=== PATIENT | male | born 1985 | race Hispanic/Latino ===

== ENCOUNTER 2023-11-18 20:59 | Inpatient (IN) | payer OTHER, SELFPAY ==
[2023-11-18] VITALS (8 sets, daily range): BP systolic 117–137; BP diastolic 68–87; BMI 25.3
[2023-11-18] MEDS: MAGNESIUM SULFATE 50 IV (18:00)
--- NOTE | 2023-11-18 18:00 | EDRN ---
this RN noticed that the pt was 91% on RA, this RN notified Dr. Kay and placed the pt on 2L NC, the pt is 92% on 2L NC, the pt is tachypnic, anxious, and diaphoretic, this RN notified provider and provider wants EKG performed after breathing
treatment, the pt is stating to this RN, 'I feel like I can't breathe', the pt mother is currently at the pts bedside, tenisha alexandra in 100-110's, will continue to monitor the pt closely
[2023-11-18] MEDS: TYLENOL 1000 MG PO (18:01)
--- NOTE | 2023-11-18 18:01 | ED.GENMED ---
History of Present Illness
General
Chief Complaint: Breathing Problem
Source: patient
Exam Limitations: none
Time Seen by Provider: 11/18/23 17:48
Nursing documentation reviewed up to this point in time: agreed with
Travel History
Have you had any contact with someone who has COVID-19?: No
Do you have any symptoms of coronavirus? Fever > 100 degrees, chills, cough, shortness of breath, sore throat, loss of taste or smell, muscle aches, or headache?: Yes
Symptoms:: see triage
History of Present Illness
History of Present Illness:
38-year-old male recently quit smoking asthmatic infant son with RSV presents with cough congestion fever vomiting here is tachypneic tachycardic wheezing hypoxic
Ran out of his inhaler
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
Past History
Past History
ED Past Medical History: Asthma
ED Past Surgical History: None
Social History
Tobacco: Former smoker
Alcohol: Occasional
Drug: None
Living: with family
Employment: Employed
Family History
Family History: Diabetes
Review of Systems
Review of Systems
All Other Systems: Not applicable
Constitutional: Reports fever and fatigue
Respiratory: Reports cough and trouble breathing
Cardiac: Reports no symptoms
ABD/GI: Reports nausea and vomiting
: Reports no symptoms
Musculoskeletal: Reports no symptoms
Skin: Reports no symptoms
Neurological: Reports no symptoms
Phy Exam
Physical Exam
Physical Exam:
Physical Exam
General: Appearing male tachypneic grunting febrile
Neck: No jaundice
Heart: Tachycardic
Lungs: Wheezing with rhonchi bilateral
Abdomen: Nontender
Neuro: alert and oriented. no focal neurological deficits
Skin: no rash
Psychiatric: well kept. interactive and cooperative
Extremities: no edema. no calf tenderness.
Course
Orders/Labs/Results
Orders:
Orders
11/18/23 17:54
0.9% Sodium Chloride 1000 ml [Nss] 1,000 ml IV BOLUS
Acetaminophen [Tylenol] 1,000 mg PO NOW STA
Albuterol Sulfate [Ventolin Nebules] 7.5 mg INH R NOW STA
Dexamethasone Sod Phosphate [Decadron] 20 mg IV NOW STA
Magnesium Sulfate 2 Gram/50 ml [Magnesium Sulfate] 2 gram in 50 ml IV NOW
11/18/23 17:55
COVID-19 Antigen Urgent
Source: Nasal Swab
Complete Blood Count/With Diff Urgent
Comprehensive Metabolic Panel Urgent
Lactic Acid Urgent
Blood Culture Urgent
CLIFF Source: Blood/Venous
Specimen Description:
Influenza A+B Rapid Molecular Urgent
CLIFF Source: Nasal Swab
Specimen Description:
CR Chest Portable - 1 View Urgent
Comment:
Reason For Exam: sob
Reason Study Needs to be Portable: Unable to Transport
11/18/23 18:31
ABG [Arterial Blood Gas] Stat
%Oxygen/Room Air: 2
11/18/23 18:42
Respiratory Syncytial Virus Urgent
CLIFF Source: Nasal Swab
Specimen Description:
Date Specimen was Collected: 11/18/23
Time Specimen was Collected: 18:33
11/18/23 19:53
Admit/Transfer Patient As Directed
Co-Sign Provider:
Level of Care: Inpatient admission
Assign to:: Medical/Surgical
Physician / Group: Cricket
Diagnosis: AE-Asthma, Acute Hypoxemic Respiratory Insufficiency
Reason for Hospitalization: AE-Asthma, Acute Hypoxemic Respiratory Insufficiency
Expected length of stay greater than two midnights?: Yes
ELOS- Estimated Length of Stay in days: 2
I certify the patient meets the requirements for IP care: Yes
11/18/23 19:54
Code Status As Directed
Resuscitation Status: Full Code
11/18/23 22:23
0.9% Sodium Chloride 1000 ml [Nss] 1,000 ml IV 100 mls/hr
Acetaminophen [Tylenol] 650 mg PO Q4HPRN PRN
Albuterol Nebs [Ventolin Nebules] 2.5 mg INH R Q4HPRN PRN
Doxycycline [Vibramycin] 100 mg PO Q12
Ondansetron Injectable [Zofran] 4 mg IV Q6HPRN PRN
11/18/23 22:23
Activity As Directed
Activity Level: Ambulate
I/O [Intake/ Output] As Directed
Frequency: Per unit guidelines
Vital Signs As Directed
Frequency: Per unit guidelines
Oxygen Therapy [O2 Therapy] [RESP] Routine
Titrate/Wean O2 to maintain O2 sat greater than (%): 94
DX Deep Vein Thrombosis Video Routine
11/18/23 23:00
Procalcitonin Urgent
PCT Algorithmm Indication: Respiratory
11/19/23 02:00
Dexamethasone Sod Phosphate [Decadron] 4 mg IV Q8H
11/19/23 05:48
Basic Metabolic Panel IN AM
Complete Blood Count/No Diff IN AM
11/19/23 Breakfast
Regular
At Your Request: Full Participation
Does patient need a safe tray?: No
11/19/23 18:00
Enoxaparin Sodium [Lovenox] 40 mg SC QPM
Abnormal Lab Results
11/18/23 11/18/23
17:55 18:31
WBC 19.0 H 10^3/uL
(4.8-10.8)
Abs Immat Gran (auto) 0.1 H 10^3/uL
(0-0.05)
Absolute Neuts (auto) 17.8 H 10^3/uL
(1.4-6.5)
Absolute Lymphs (auto) 0.3 L 10^3/uL
(1.2-3.4)
Absolute Monos (auto) 0.7 H 10^3/uL
(0.1-0.6)
Neutrophils % 93.8 H %
(42.2-75.2)
Lymphocytes % 1.7 L %
(20.5-51.1)
pH 7.48 H
(7.35-7.45)
pCO2 28 L mmHg
(35-48)
pO2 62 L mmHg
(83-108)
HCO3 20.9 L mmol/L
(21-28)
Chloride 108 H mmol/L
(98-107)
BUN 25 H mg/dl
(9-20)
11/18/23 17:55
11/18/23 17:55
Vital Signs
Initial and Last Documented VS:
Initial Vital Signs
Temp Pulse Resp BP Pulse Ox
100.2 F 128 24 128/87 96
11/18/23 17:23 11/18/23 17:23 11/18/23 17:23 11/18/23 17:23 11/18/23 17:23
Last Documented Vital Signs
Temp Pulse Resp BP Pulse Ox
97.8 F 75 16 160/95 98
11/20/23 07:55 11/20/23 15:56 11/20/23 15:56 11/20/23 07:55 11/20/23 07:55
MDM/Problems Addressed
Differential Diagnosis Includes:
Asthma bronchitis pneumonia influenza COVID RSV
MDM/Problems Addressed:
Shortness of breath cough fever
Chronic conditions affecting care: Asthma
Acute Exacerbation and/or Progression of Chronic Illness: Asthma
*Critical Care Note
Total Time (30-74mins, 75-104mins- exclusive of procedures): 31
Patient Management
Social determinants of health affecting care: Living situation and Strong social support
Discussion with other providers: Hospitalist
Escalation/DeEscalation of care consider admission/obs:
Patient hypoxic tachypneic tachycardic low-grade fever asthmatic will require admission
Update Note
Update Note:
6:45 PM patient clinically improved moving more air less tachypneic less tachycardic still requiring oxygen chest x-ray noted for report pending leukocytosis noted viral swabs are noted will likely require admission due to severity of illness
potential for decompensation
ED Attending Note
-
Portions of this chart may have been created with voice recognition software.� Occasional wrong word or��sound alike� substitutions may have occurred due to the inherent limitations of voice recognition software.
Discharge Plan
Departure
Patient Disposition: Admit
Date of Disposition: 11/18/23
Time of Disposition: 19:33
Admit to: Med/Surg
Presentation/result/management discussed w/ accepting MD/DO: Hospitalist
Patient with high blood pressure during this ER visit?: No
Condition: Fair
Covid-19: Negative COVID-19
Discharge Problem:
Asthmatic bronchitis
Interventions
Interventions:
*Risk Screen - Suicide Last Done: 11/18/23 18:00
*General Assessment Last Done: 11/18/23 18:00
*Neglect/Abuse Screening Last Done: 11/18/23 18:00
ED- Fall Risk Assessment Last Done: 11/18/23 18:00
*ED COVID-19 Vaccine History Last Done: 11/18/23 17:23
*Nursing Disposition Last Done: 11/18/23 23:49
ED- Cardiac Assessment Last Done: 11/18/23 23:57
ED- Pulmonary Assessment Last Done: 11/18/23 23:57
Discharge Date and Time
Discharge Date/Time: 11/20/23 15:57
[2023-11-18] MEDS: NSS 1000 IV ×2 (18:02→22:54)
[2023-11-18] MEDS: DECADRON 20 MG IV (18:02)
[2023-11-18] MEDS: VENTOLIN NEBULES 7.5 MG INH (18:02)
[2023-11-18 18:03] LABS: % Basophils 0.2 % (0-2); % Eosinophils 0.1 % (0-6); % Immature Granulocytes 0.5 % (0-0.5); % Lymphocytes 1.7 % (20.5-51.1); % Monocytes 3.7 % (1.7-9.3); % Neutrophils 93.8 % (42.2-75.2); Absolute Immature Granulocytes 0.1 10^3/uL (0-0.05); Absolute Lymphocytes 0.3 10^3/uL (1.2-3.4); Absolute Monocytes 0.7 10^3/uL (0.1-0.6); Absolute Neutrophils 17.8 10^3/uL (1.4-6.5); Hematocrit 44.8 % (39.0-52.0); Mean Corp Hgb Conc. 33.5 g/dL (33.0-37.0); Mean Corpuscular Hgb 27.8 pg (27.0-31.0); Nucleated Red Blood Cells % 0 % (-); Platelet Count 284 10^3/uL (130-400); Red Cell Dist. Width 12.9 % (11.5-14.5)
[2023-11-18 18:20] LABS: ALT (SGPT) 21 U/L (0-50); AST (SGOT) 23 U/L (17-59); Albumin 4.6 g/dl (3.5-5.0); Alkaline Phosphatase 111 U/L (38-126); Blood Urea Nitrogen 25 mg/dl (9-20); Calcium 9.2 mg/dl (8.4-10.2); Carbon Dioxide 22 mmol/L (22-30); Chloride 108 mmol/L (98-107); Estimated Creatinine Clearance 78 ml/min; Glucose 92 mg/dl (70-99); Lactic Acid 1.3 mmol/L (0.7-2.0); Potassium 3.6 mmol/L (3.5-5.1); Sodium 138 mmol/L (135-145); Total Bilirubin 1.2 mg/dl (0.2-1.3); Total Protein 7.6 g/dl (6.3-8.2); eGFR > 60.00
[2023-11-18 18:24] LABS: COVID-19 Antigen Negative (Negative)
[2023-11-18 18:52] LABS: B.E. -1.3 mmol/L; HCO3 20.9 mmol/L (21-28); O2 Saturation % 94.5 % (94-98); PCO2 28 mmHg (35-48); PO2 62 mmHg (83-108); pH 7.48 (7.35-7.45)
--- NOTE | 2023-11-18 19:57 | HPS.HSE ---
Family Physician
-
Family Physician: * NONE
Chief Complaint
-
Cough / SOB
History of Present Illness
Patient is a 38y M with PMH significant for asthma who presents to ED complaining of cough and SOB. Patient states that his symptoms started yesterday with hacking, non-productive cough / fever and sweating. He began to feel increasingly SOB
with audible wheezing. Patient states that he has been taking ibuprofen and albuterol MDI at home with no relief in his symptoms.
He is not certain of any specific sick contacts.
In the ED, patient was treated with nebs and IV steroids and is currently significantly improved from arrival.
Medical History
Past Medical History
Past Medical History: Reports Other
Additional Past Medical History:
Asthma
Past Surgical History: Reports None
Social History
Tobacco: Former Smoker (Quit 2 months ago. )
Alcohol: None
Drug: None
Family History
Family History: Other (Father: DM, HTN Family History of Dementia)
Allergies / Home Medications
Allergies reflects when Allergies were last updated in [employer]
Home Medications with original date entered in [employer]
Allergy/Medication List:
Allergies
Allergy/AdvReac Type Severity Reaction Status Date / Time
No Known Allergies Allergy Verified 11/18/23 17:26
Home Medications
albuterol sulfate 90 mcg/actuation aerosol inhaler (Proventil HFA) 2 puff inhalation R Q4HPRN PRN shortness of breath 11/18/23
Review of Systems
-
History Source: Patient
A 12 point ROS was completed and negative except as noted: Yes
Constitutional: Reports Fever, Fatigue and Chills
EENT: Denies Sore Throat
Respiratory: Reports Cough and Trouble Breathing
Cardiac: Denies Chest Pain or Palpitations
Abdomen/GI: Denies Abdominal Pain, Nausea, Vomiting or Diarrhea
: Denies Dysuria or Frequency
Neurological: Denies Dizzy or Headache
Psych: Denies Depression or Anxiety
Physical Exam
Vital Signs
Vital Signs
Temp Pulse Resp BP Pulse Ox
100.5 F H 105 19 134/81 95
11/18/23 19:12 11/18/23 19:00 11/18/23 19:00 11/18/23 19:00 11/18/23 19:00
Physical Exam
General: Other (38y M in no acute distress.)
HEENT: Moist mucous membranes and PERRLA
Respiratory: Other (Faint expiratory wheezing throughout. Otherwise clear. No rhonchi.)
Cardiac: S1/S2 and Regular Rhythm; No Murmur
GI: Soft, Non Tender, Non Distended and Normal Bowel Sounds
Musculoskeletal: No Clubbing, No Cyanosis and No Edema
Neuro: AO x 3
Laboratory Results
-
11/18/23 17:55
11/18/23 17:55
Laboratory Results
pH 7.48 (7.35-7.45) H 11/18/23 18:31
pCO2 28 mmHg (35-48) L 11/18/23 18:31
pO2 62 mmHg (83-108) L 11/18/23 18:31
HCO3 20.9 mmol/L (21-28) L 11/18/23 18:31
Lactic Acid 1.3 mmol/L (0.7-2.0) 11/18/23 17:55
Total Bilirubin 1.2 mg/dl (0.2-1.3) 11/18/23 17:55
AST 23 U/L (17-59) 11/18/23 17:55
ALT 21 U/L (0-50) 11/18/23 17:55
Alkaline Phosphatase 111 U/L (38-126) 11/18/23 17:55
Impression/Plan
-
A/P: Patient is a 38y M with PMH significant for asthma who presents to ED complaining of cough and SOB.
Asthma with Acute Exacerbation
- Admit for further evaluation and treatment.
- Significantly improved from initial presentation.
- Continue IV steroids, nebs, etc.
- Follow for further clinical improvement.
Bronchitis
Leukocytosis
- COVID, influenza and RSV negative in the ED today.
- Check procalcitonin.
- Will start PO doxycycline for now.
- Patient was not on any PO steroids or other treatment prior to admission.
- Low threshold to discontinue abx if procal normal or patient quickly improves.
DVT Prophylaxis: Lovenox
Code Status: Full
[2023-11-18] MEDS: VIBRAMYCIN 100 MG PO (22:54)
[2023-11-19] MEDS: STERILE WATER FOR INJECTION 10 ML IV (02:00)
[2023-11-19] MEDS: DECADRON 4 MG IV ×3 (02:07→17:04)
[2023-11-19] MEDS: ROCEPHIN 1000 MG IV (02:08)
[2023-11-19 05:48] VITALS: BP 139/91
[2023-11-19 06:01] LABS: Hematocrit 41.1 % (39.0-52.0); Hemoglobin 13.7 g/dL (13.0-18.0); Mean Corp Hgb Conc. 33.3 g/dL (33.0-37.0); Mean Corpuscular Volume 80.9 fL (80.0-94.0); Mean Platelet Volume 9.9 fL (7.4-10.4); Platelet Count 272 10^3/uL (130-400); Red Blood Cell Count 5.08 10^6/uL (4.70-6.10); Red Cell Dist. Width 13.2 % (11.5-14.5); White Blood Cell Count 25.3 10^3/uL (4.8-10.8)
[2023-11-19 06:21] LABS: Blood Urea Nitrogen 24 mg/dl (9-20); Calcium 8.9 mg/dl (8.4-10.2); Carbon Dioxide 19 mmol/L (22-30); Chloride 111 mmol/L (98-107); Estimated Creatinine Clearance 123 ml/min; Glucose 160 mg/dl (70-99); Potassium 3.9 mmol/L (3.5-5.1); Sodium 139 mmol/L (135-145); eGFR > 60.00
[2023-11-19 07:30] VITALS: BP 152/93
--- NOTE | 2023-11-19 07:42 | W.PN.HOSP.TC ---
Addendum entered and electronically signed by Keira Godoy MD 11/20/23 15:59:
correction cont IV ceftriaxone.
Empiric doxycycline received on admission not continued.
Original Note:
Today's Communication/Plan
-
duoneb
albuterol prn
doxycycline
steroid taper
monitor respiratory status
Assessment / Plan
Assessment / Plan
Physical Exam
General: no acute distress appears comfortable at this time
HEENT: Moist mucous membranes and PERRLA
Respiratory: mild wheeze
Cardiac: S1/S2 and Regular Rhythm; No Murmur
GI: Soft, Non Tender, Non Distended and Normal Bowel Sounds
Musculoskeletal: No Clubbing, No Cyanosis and No Edema
Neuro: AO x 3
A/P:� Patient is a 38y M with PMH significant for asthma who presents to ED complaining of cough and SOB.
Asthma with Acute Exacerbation.
�-Scheduled Duonebs, Albuterol prn sob wheezing.
�-Steroid taper
-incentive spirometer
Bronchitis
Leukocytosis
Pneumonia
�- COVID, influenza and RSV negative.
�- procal elevated
�- cont PO doxycycline
DVT Prophylaxis:� Lovenox
Code Status:� Full
I spent a total of 50 minutes with the patient or on the floor. More than 50% of this time involved counseling and coordination of care.
Anticipated Discharge: 24 - 48 hours
Subjective/Interval History
-
Date of Service: November 19, 2023
No acute distress. Reports improvement in symptoms. Continues to endorse sob fatigue however. VSS on room air
Objective Data
-
Labs:
Laboratory Results
11/19/23
05:48
WBC 25.3 H
Hgb 13.7
Hct 41.1
Plt Count 272
Sodium 139
Potassium 3.9
Chloride 111 H
Carbon Dioxide 19 L
BUN 24 H
Creatinine 0.7
Glucose 160 H
Calcium 8.9
Vital Signs:
Vital Signs
Temp Pulse Resp BP Pulse Ox
97.8 F 74 20 139/91 97
11/19/23 05:48 11/19/23 05:48 11/19/23 05:48 11/19/23 05:48 11/19/23 05:48
[2023-11-19] MEDS: TYLENOL 650 MG PO ×3 (10:04→21:21)
[2023-11-19] MEDS: NSS 1000 IV ×2 (10:04→18:09)
[2023-11-19] MEDS: DUONEB INH (11:22)
[2023-11-19] MEDS: DUONEB 3 ML INH ×3 (11:22→21:14)
[2023-11-19 11:30] VITALS: BP 137/95
[2023-11-19 16:30] VITALS: BP 147/74
[2023-11-19] MEDS: LOVENOX 40 MG SC (17:04)
[2023-11-19 23:00] VITALS: BP 135/87
[2023-11-20] MEDS: DECADRON 4 MG IV (01:22)
[2023-11-20] MEDS: STERILE WATER FOR INJECTION 10 ML IV (01:22)
[2023-11-20] MEDS: ROCEPHIN 1000 MG IV (01:23)
[2023-11-20] MEDS: NSS 1000 IV (03:51)
[2023-11-20 05:44] LABS: Hematocrit 35.7 % (39.0-52.0); Mean Corp Hgb Conc. 33.6 g/dL (33.0-37.0); Mean Corpuscular Hgb 27.8 pg (27.0-31.0); Mean Corpuscular Volume 82.8 fL (80.0-94.0); Mean Platelet Volume 10.6 fL (7.4-10.4); Platelet Count 255 10^3/uL (130-400); Red Blood Cell Count 4.31 10^6/uL (4.70-6.10); Red Cell Dist. Width 13.7 % (11.5-14.5); White Blood Cell Count 22.5 10^3/uL (4.8-10.8)
[2023-11-20 05:57] LABS: Blood Urea Nitrogen 19 mg/dl (9-20); Calcium 8.3 mg/dl (8.4-10.2); Carbon Dioxide 22 mmol/L (22-30); Chloride 114 mmol/L (98-107); Estimated Creatinine Clearance 123 ml/min; Glucose 154 mg/dl (70-99); Phosphorus 2.8 mg/dl (2.5-4.5); Potassium 4.2 mmol/L (3.5-5.1); Sodium 141 mmol/L (135-145); eGFR > 60.00
--- NOTE | 2023-11-20 07:28 | W.PN.HOSP.TC ---
Addendum entered and electronically signed by Keira Godoy MD 11/23/23 11:21:
Sepsis present on admission resolved
Addendum entered and electronically signed by Keira Godoy MD 11/20/23 15:45:
correction to following documentation. Patient on daily ceftriaxone past two days. Clinically improved. Will discharge on doxycycline for 5 days.
Original Note:
Today's Communication/Plan
-
discharge
Assessment / Plan
Assessment / Plan
Physical Exam
General: no acute distress appears comfortable at this time
HEENT: Moist mucous membranes and PERRLA
Respiratory: clear to auscultation b/l
Cardiac: S1/S2 and Regular Rhythm; No Murmur
GI: Soft, Non Tender, Non Distended and Normal Bowel Sounds
Musculoskeletal: No Clubbing, No Cyanosis and No Edema
Neuro: AO x 3
A/P:� Patient is a 38y M with PMH significant for asthma who presents to ED complaining of cough and SOB.
Asthma with Acute Exacerbation.
�-Scheduled Duonebs, Albuterol prn sob wheezing.
�-Steroid taper
-incentive spirometer
Bronchitis
Leukocytosis
Pneumonia
�- COVID, influenza and RSV negative.
�- procal elevated
-Clinically improved
�- cont PO doxycycline 5 days on discharge
DVT Prophylaxis:� Lovenox
Code Status:� Full
Medically stable for discharge home with outpatient follow up recommendations.
Total Time Preparing Discharge ___45____ minutes including examination of the patient, summary of the hospital stay, instructions for continuing care to all relevant caregivers; and preparation of discharge records, prescriptions, and referral
forms if necessary.
Anticipated Discharge: Today
Subjective/Interval History
-
Date of Service: November 20, 2023
no acute distress resting comfortable in bed. Reports feeling well, ambulating without issues. denies new acute issues. Eager to go home.
Objective Data
-
Labs:
Laboratory Results
11/20/23
05:28
WBC 22.5 H
Hgb 12.0 L
Hct 35.7 L
Plt Count 255
Sodium 141
Potassium 4.2
Chloride 114 H
Carbon Dioxide 22
BUN 19
Creatinine 0.7
Glucose 154 H
Calcium 8.3 L
Vital Signs:
Vital Signs
Temp Pulse Resp BP Pulse Ox
97.8 F 88 18 135/87 98
11/19/23 23:00 11/19/23 23:00 11/19/23 23:00 11/19/23 23:00 11/19/23 23:00
I&O
11/19/23 11/20/23 11/21/23
06:59 06:59 06:59
Intake Total 2690 / 2690
Balance 2690 / 2690
[2023-11-20 07:55] VITALS: BP 160/95
[2023-11-20] MEDS: DUONEB 3 ML INH ×3 (08:28→15:52)
--- NOTE | 2023-11-20 10:45 | CM ---
CM reviewed medication coverage. Patient lives independently with mother. Patient denied history of VN, SNF. Patient has a nebulizer. Patient does not have a PCP at this time. Patient uses [facility] for medication services.
CM provided patient with information on the [facility], [facility] and [facility] coupon.
PLAN: Home no needs.
--- NOTE | 2023-11-20 15:58 | W.DCSUMMARY ---
Discharge Summary
Discharge Data
Date of Admission: 11/18/23
Date of Discharge: 11/20/23
-
Pending Results: No
Hospital Course
38M with PMH significant for asthma who presented to ED complaining of cough and SOB. Asthma with Acute Exacerbation, patient improved with scheduled Duonebs, Albuterol prn sob wheezing, Steroid taper, incentive spirometer. Bronchitis,
Leukocytosis, Pneumonia (COVID, influenza and RSV negative), procal elevated, pt clinically improved on IV ceftriaxone and was transitioned to PO doxycycline 5 days on discharge. Medically stable, patient was discharged home with outpatient follow
up recommendations.
Discharge Plan
-
Patient Disposition: Home (Routine Discharge)
Discharge Diagnosis/Procedures: Pneumonia, Asthma Exacerbation
Condition: Good
Diet: Regular
Activity: As tolerated
Driving Restrictions: As prior to admission
Bathing Restrictions: None
Blood Work: Please repeat CBC and BMP with primary care provider in 1 week of discharge.
Others Tests: Please repeat Chest X-ray with primary care provider in 1 month of discharge.
Activity Restrictions/Additional Instructions:
Please follow up with primary care provider in 1 week of discharge.
5 days Doxycycline has been prescribed for pneumonia.
Doxycycline Precautions
Take with at least 6 oz H2O
Take with food but no calcium containing products like milk or cheese
Ideally you would not take any multivitamins, calcium, magnesium or zinc containing products.
If you must take one of these products make sure that the pills are by at least 3 hours.
Sit up for at least 30 minutes after each dose to prevent heartburn.
Your skin will be more sensitive to the sun while you are on doxycycline - it will be very easy for you to get a sunburn.
A prednisone taper has been prescribed for asthma exacerbation:
40 mg day 1, 30 mg day 2, 20 mg day 3, 10 mg day 4, then stop.
A script has been provided for a nebulizer machine. As needed nebulizer medication has been prescribed to your pharmacy.
Please take medications as prescribed/recommended and follow up with your primary care provider and/or other healthcare provider involved in your care for further adjustments to your medication regimen as necessary.
Instructions: Asthma, Adult (DC), Community-Acquired Pneumonia, Adult (DC)
Referrals:
NONE,* [Family Provider] -
Prescriptions:
New
ipratropium-albuterol 0.5 mg-3 mg(2.5 mg base)/3 mL Solution For Nebulization
3 ml inhalation QIDPRN PRN (Reason: shortness of breath or wheezing) Qty: 180 0RF
doxycycline hyclate 100 mg Capsule
100 mg PO Q12 5 Days Qty: 10 0RF
prednisone 10 mg Tablet
See Rx Instructions .ROUTE .COMPLEX Qty: 10 0RF
Rx Instructions:
Take By Mouth:
40 mg daily x1 day, 30 mg daily x1 day,
20 mg daily x1 days, 10 mg daily x1 day
Continued
albuterol sulfate [Proventil HFA] 90 MCG/PUFF HFA aerosol inhaler
2 puff inhalation R Q4HPRN PRN (Reason: shortness of breath)
Discharge Orders:
Discharge Patient (As Directed); Ordered 11/20/23
Ordered By: Keira Godoy
Discharge Date and Time
Discharge Date/Time: 11/20/23 16:00
[2023-11-20] MEDS: VIBRAMYCIN 100 MG PO (16:19)
[2023-11-20] MEDS: TYLENOL 650 MG PO (16:27)
--- NOTE | 2023-11-20 17:36 | PTCARENOTE ---
Patient ready for discharge, went over discharge instructions with patient and patient's mother. Removed IV. Patient walked out with mother.
--- NOTE | 2023-11-21 10:46 | PN.CDI ---
CDI
- -
CDI:
Physician Documentation Request
Admit Date: 11/18/23 20:59
Dear Doctor Walt,
Clinical Indicators:
Patient admitted with Asthma with Acute Exacerbation.
11/19 PN, 'Pneumonia...cont IV ceftriaxone'
WBC on admission:
11/18/23
17:55
WBC 19.0 H
Temp on admission:
11/18/23
17:23 11/18/23
19:12
Temp 100.2 F 100.5 F H
HR/RR trend on admission:
11/18/23
17:23 11/18/23
17:46 11/18/23
18:00
Pulse 128 113 102
Resp Rate 24 24 22
11/18/23
18:15 11/18/23
18:30 11/18/23
18:45
Pulse 101 106 107
Resp Rate 22 15 21
Please clarify which of the following most accurately describes the status of the patient's infection:
Sepsis, POA
- Systemic manifestations of infection, with 2 or more SIRS criteria which include:
- Fever >100.4 degrees F or hypothermia < 96.8 degrees F
- Leukocytosis - WBC > 12,000 or leukopenia - WBC < 4,000 or > 10% bands
- Tachycardia > 90 beats per minute
- Tachypnea - RR > 20 breaths per minute or PaCO2 , 32mmHg
Source: Merck Manual 2013
- Indicate the known or suspected organism
Pneumonia Only, Without Systemic Illness
Other, please specify
Use of terms such as suspected, likely, concern for, or probable (associated with a specific diagnosis that is being evaluated, monitored, or treated as if it exists) are acceptable and can be coded in the inpatient setting, when documented at the
time of discharge.
Thank you,
GLADIS Dunbar RN
CDI Specialist
available via tiger text
Please use your independent medical judgment in providing your response.
== END 2023-11-20 16:00 | disposition home or self-care (01) | DRG 871 ==
LOC: ED 20:59
PROVIDERS: ADMITTING PHYSICIAN Hospitalist; ATTENDING PHYSICIAN Internal Medicine; EMERGENCY PHYSICIAN Emergency Medicine
DX: A41.9 Sepsis, unspecified organism (principal); J18.9 Pneumonia, unspecified organism; J45.901 Unspecified asthma with (acute) exacerbation; Z87.891 Personal history of nicotine dependence; Z11.52 Encounter for screening for COVID-19
CPT/HCPCS: 71045; 80048; 80053; 82805; 83605; 83735; 84100; 84145; 85025; 85027; 87040; 87449; 87502; 87807; 87811; 87899; 90686; 94640; 94644; 96361; 96365; 96375; 99285; G0008

== ENCOUNTER 2024-07-23 22:56 | Emergency (ER) | payer SELFPAY ==
[2024-07-23 22:58] VITALS: BP 160/101
[2024-07-23] MEDS: TYLENOL 1000 MG PO (23:07)
[2024-07-23 23:19] LABS: % Basophils 0.3 % (0-2); % Eosinophils 0.9 % (0-6); % Immature Granulocytes 0.4 % (0-0.5); % Lymphocytes 6.9 % (20.5-51.1); % Monocytes 4.5 % (1.7-9.3); Absolute Eosinophils 0.1 10^3/uL (0-0.7); Absolute Immature Granulocytes 0.1 10^3/uL (0-0.05); Absolute Monocytes 0.6 10^3/uL (0.1-0.6); Hematocrit 41.8 % (39.0-52.0); Mean Corp Hgb Conc. 33.5 g/dL (33.0-37.0); Mean Corpuscular Volume 80.5 fL (80.0-94.0); Mean Platelet Volume 10.6 fL (7.4-10.4); Nucleated Red Blood Cells % 0 % (-); Platelet Count 254 10^3/uL (130-400); Red Blood Cell Count 5.19 10^6/uL (4.70-6.10); Red Cell Dist. Width 13.2 % (11.5-14.5); White Blood Cell Count 13.8 10^3/uL (4.8-10.8)
[2024-07-23 23:33] LABS: ALT (SGPT) 21 U/L (0-50); AST (SGOT) 24 U/L (17-59); Albumin 4.8 g/dl (3.5-5.0); Alkaline Phosphatase 101 U/L (38-126); Blood Urea Nitrogen 20 mg/dl (9-20); Calcium 9.4 mg/dl (8.4-10.2); Carbon Dioxide 25 mmol/L (22-30); Chloride 102 mmol/L (98-107); Glucose 114 mg/dl (70-99); Potassium 4.2 mmol/L (3.5-5.1); Sodium 138 mmol/L (135-145); Total Bilirubin 0.8 mg/dl (0.2-1.3); Total Protein 7.2 g/dl (6.3-8.2); eGFR > 60.00
[2024-07-23 23:49] LABS: COVID-19 Antigen Negative (Negative)
[2024-07-24 01:41] VITALS: BP 132/84
--- NOTE | 2024-07-24 02:13 | ED.GENMED ---
History of Present Illness
<CHAPARRITA Bruce - Last Filed: 07/24/24 05:36>
General
Chief Complaint: Cold/Flu/URI Symptoms
Time Seen by Provider: 07/24/24 02:12
History of Present Illness
History of Present Illness:
Patient is a 39 year old male with a PMH of asthma presenting to the ED with complaints of flu like symptoms x 1 day. He presents with sob cough sore throat and a fever with a tmax of 102.5. He claims he tried his PRN inhaler which did not alleviate
symptoms. Patient states the sob is mild and the symptoms started last night. Throughout the day today his symptoms have gotten worse. He claims this feels like the flu which he has had before. His sore throat was mild and the cough was non
productive. He ate a hoagie and drank some water this morning but that's it. Patient admits to feeling mildly dehydrated. Patient denies any nausea vomiting abdominal pain light headedness headache chest pain palpitations.
Patient has a PMH of asthma which is controlled on a PRN inhaler. He has no other chronic PMH. He is a former smoker but denies alcohol use. Denies any recent sick contact. He was here in October for asthmatic bronchitis and was given steroids
antibiotics and a DuoNeb.
Past History
<CHAPARRITA Bruce - Last Filed: 07/24/24 05:36>
Past History
ED Past Medical History: Asthma
ED Past Surgical History: None
Social History
Tobacco: Former smoker
Alcohol: Occasional
Drug: None
Living: with family
Employment: Employed
Family History
Family History: Diabetes
Review of Systems
<CHAPARRITA Bruce - Last Filed: 07/24/24 05:36>
Review of Systems
Allergies reviewed?: Yes
Constitutional: Reports fever
EENT: Reports sore throat
Respiratory: Reports cough and trouble breathing
Cardiac: Reports no symptoms
ABD/GI: Reports no symptoms
: Reports no symptoms
Neurological: Reports no symptoms
Phy Exam
<[facility] Filed: 07/24/24 05:36>
General Physical Exam
General Presentation: mild distress
General age: appears stated age
General Habitus: normal
General Mental: alert
ENT Exam
ENT Exam: pharynx normal
Cardiovascular Exam
Cardiovascular Exam: regular rate/rhythm, no edema, no gallop, no JVD and no murmur
Pulmonary Exam
Pulmonary Exam: no respiratory distress, no rales, chest non tender, no crackles, no rhonchi, no stridor and generalized wheezing (wheezing b/l)
Cough: non productive cough
Breath Sounds: Wheeze: generalized
Sepsis
<Jose Miguel [facility] Filed: 07/24/24 05:36>
Sepsis Screening
Sepsis Assessment: Sepsis Ruled Out
Sepsis Screen
Sepsis Screen: Sepsis Ruled Out
Date: 07/24/24
Time: 05:36
Course
<Jose Miguelbrenda [facility] Filed: 07/24/24 05:36>
Orders/Labs/Results
Orders:
Orders
07/23/24 23:02
Acetaminophen [Tylenol] 1,000 mg PO NOW STA
07/23/24 23:07
CMP [Comprehensive Metabolic Panel] Urgent
Complete Blood Count/With Diff Urgent
07/23/24 23:11
COVID-19 Antigen Urgent
Source: Nasal Swab
Influenza A+B Rapid Molecular Urgent
CLIFF Source: Nasal Swab
Specimen Description:
Date Specimen was Collected: 07/23/24
Time Specimen was Collected: 23:10
Rapid Strep Group A Urgent
CLIFF Source: Throat/Pharynx
Specimen Description:
Date Specimen was Collected: 07/23/24
Time Specimen was Collected: 23:10
07/24/24 00:01
CR Chest - 2 Views Urgent
Reason For Exam: cough
07/24/24 02:42
Ipratropium/Albuterol Sulfate [Duoneb] 3 ml INH R NOW ONE
Prednisone [Deltasone] 50 mg PO NOW STA
07/24/24 03:09
Procalcitonin Urgent
PCT Algorithmm Indication: Respiratory
07/24/24 03:59
Doxycycline [Vibramycin] 100 mg PO NOW STA
Abnormal Lab Results
07/23/24 07/24/24
23:07 03:09
WBC 13.8 H 10^3/uL
(4.8-10.8)
MPV 10.6 H fL
(7.4-10.4)
Abs Immat Gran (auto) 0.1 H 10^3/uL
(0-0.05)
Absolute Neuts (auto) 12.0 H 10^3/uL
(1.4-6.5)
Absolute Lymphs (auto) 1.0 L 10^3/uL
(1.2-3.4)
Neutrophils % 87.0 H %
(42.2-75.2)
Lymphocytes % 6.9 L %
(20.5-51.1)
Glucose 114 H mg/dl
(70-99)
Procalcitonin 0.62 H ng/ml
(0.0-0.25)
07/23/24 23:07
07/23/24 23:07
Vital Signs
Initial and Last Documented VS:
Initial Vital Signs
Temp Pulse Resp BP Pulse Ox
102.5 F H 112 24 160/101 96
07/23/24 22:58 07/23/24 22:58 07/23/24 22:58 07/23/24 22:58 07/23/24 22:58
Last Documented Vital Signs
Temp Pulse Resp BP Pulse Ox
99.1 F 79 16 129/71 96
07/24/24 01:41 07/24/24 04:32 07/24/24 04:32 07/24/24 04:32 07/24/24 04:32
<Yuliya Arciniega, DO - Last Filed: 07/24/24 04:13>
Orders/Labs/Results
Orders:
Orders
07/23/24 23:02
Acetaminophen [Tylenol] 1,000 mg PO NOW STA
07/23/24 23:07
CMP [Comprehensive Metabolic Panel] Urgent
Complete Blood Count/With Diff Urgent
07/23/24 23:11
COVID-19 Antigen Urgent
Source: Nasal Swab
Influenza A+B Rapid Molecular Urgent
CLIFF Source: Nasal Swab
Specimen Description:
Date Specimen was Collected: 07/23/24
Time Specimen was Collected: 23:10
Rapid Strep Group A Urgent
CLIFF Source: Throat/Pharynx
Specimen Description:
Date Specimen was Collected: 07/23/24
Time Specimen was Collected: 23:10
07/24/24 00:01
CR Chest - 2 Views Urgent
Reason For Exam: cough
07/24/24 02:42
Ipratropium/Albuterol Sulfate [Duoneb] 3 ml INH R NOW ONE
Prednisone [Deltasone] 50 mg PO NOW STA
07/24/24 03:09
Procalcitonin Urgent
PCT Algorithmm Indication: Respiratory
07/24/24 03:59
Doxycycline [Vibramycin] 100 mg PO NOW STA
Abnormal Lab Results
07/23/24 07/24/24
23:07 03:09
WBC 13.8 H 10^3/uL
(4.8-10.8)
MPV 10.6 H fL
(7.4-10.4)
Abs Immat Gran (auto) 0.1 H 10^3/uL
(0-0.05)
Absolute Neuts (auto) 12.0 H 10^3/uL
(1.4-6.5)
Absolute Lymphs (auto) 1.0 L 10^3/uL
(1.2-3.4)
Neutrophils % 87.0 H %
(42.2-75.2)
Lymphocytes % 6.9 L %
(20.5-51.1)
Glucose 114 H mg/dl
(70-99)
Procalcitonin 0.62 H ng/ml
(0.0-0.25)
07/23/24 23:07
07/23/24 23:07
Vital Signs
Initial and Last Documented VS:
Initial Vital Signs
Temp Pulse Resp BP Pulse Ox
102.5 F H 112 24 160/101 96
07/23/24 22:58 07/23/24 22:58 07/23/24 22:58 07/23/24 22:58 07/23/24 22:58
Last Documented Vital Signs
Temp Pulse Resp BP Pulse Ox
99.1 F 79 16 129/71 96
07/24/24 01:41 07/24/24 04:32 07/24/24 04:32 07/24/24 04:32 07/24/24 04:32
<CHAPARRITA Bruce - Last Filed: 07/24/24 05:36>
MDM/Problems Addressed
Differential Diagnosis Includes:
asthma exacerbation, bronchitis, asthmatic bronchitis, flu, covid
MDM/Problems Addressed:
CXR normal flu covid and strep negative give fluids DuoNeb and steroids.
<CHAPARRITA Bruce - Last Filed: 07/24/24 05:36>
*Radiology
Radiology exam reviewed: preliminary read by ED provider (cxr normal compared to one on 07/06/2023)
*Critical Care Note
Total Time (30-74mins, 75-104mins- exclusive of procedures): Not Applicable
<Yuliya Arciniega DO - Last Filed: 07/24/24 04:13>
*Pulse Oximetry
Patient hypoxic: no
ED Attending Note
<CHAPARIRTA Bruce - Last Filed: 07/24/24 05:36>
-
Portions of this chart may have been created with voice recognition software.� Occasional wrong word or��sound alike� substitutions may have occurred due to the inherent limitations of voice recognition software.
<Yuliya Arciniega DO - Last Filed: 07/24/24 04:13>
ED Attending Note
Patient seen and examined by attending physician: Yes
I performed the substantive portion of visit, reviewed & personally made and approve the management plan that is documented in note by myself or GLADYS.: Yes
ED Attending Note:
This is a 39-year-old gentleman who has history of intermittent asthma, generally well-controlled with exacerbations accompanied with URIs. 1 previous hospitalization October of this year for exacerbation of asthma with hypoxia and treated for
potential pneumonia as well due to elevated procalcitonin. He is a former smoker.
He complains of 24-hour history of cough, shortness of breath, sore throat, mild nasal congestion as well as generalized aches and chills tonight.
No known close contacts with similar symptoms. 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 No recent travel.
He has been using his albuterol inhaler with only minimal temporary relief of shortness of breath.
Upon arrival to the ED found to be significantly febrile, 102.5 �F. Given Tylenol with defervescence of fever.
GENERAL: 39-year-old gentleman appears his stated age, awake and alert, mildly ill in appearance but without respiratory distress, able to speak in full sentences. Mild nasal congestion noted. Pulse ox normal at 96 on room air.
EYE: pupils equal and reactive. anicteric
NECK: Supple, nontender, no meningismus, no significant adenopathy.
ENT: posterior pharynx is clear, oral mucosa is moist. TM clear b/l, nares have moderately boggy turbinates with scant clear rhinorrhea.
CARDIAC: Regular rate and rhythm. no murmur.
LUNGS: no acute respiratory distress, scattered Pittore expiratory wheezes bilaterally.
ABDOMEN: Soft, nondistended, without focal tenderness, normoactive BS.
NEUROLOGICAL: Alert and oriented x3, no focal neuro deficits. Gait is steady.
SKIN: Warm and dry, normal color, skin intact. No rash.
MUSCULOSKELETAL: No C/C/E. peripheral pulses are full and equal b/l. No palpable tenderness.
PSYCH: Normal and appropriate interaction.
Concern for acute exacerbation of asthma, concern for pneumonia. Influenza, COVID-19. Less likely strep pharyngitis.
Labs are remarkable for elevated white blood cell count of 13.8. Mild left shift. Chemistries are unremarkable.
COVID is negative as is influenza testing. Rapid strep is negative as well.
Chest x-ray shows no evidence of infiltrate. Normal heart size.
Will give DuoNeb nebulizer, prednisone and will check procalcitonin. With history of severe asthma exacerbations, previously improving with oral antibiotics will check procalcitonin and if elevated will plan to initiate antibiotic.
07/24/2024 0411 AM
Patient resting, sleeps when undisturbed.
Dyspnea has resolved after nebulizer treatment.
He remains afebrile.
Procalcitonin mildly elevated thus we will add a course of doxycycline for potential bacterial related asthmatic bronchitis.
Prescription for prednisone taper has been provided as well. Patient has albuterol inhaler, does not require a refill.
Discussed importance of remaining well-hydrated on a daily basis. Rest.
No work until fever free for 24 hours. A work note has been provided with plan to return July 26.
Follow-up with PCP for recheck.
Return precautions discussed.
Discharge Plan
Departure
Patient Disposition: Home (Routine Discharge)
Date of Disposition: 07/24/24
Time of Disposition: 04:02
Patient with high blood pressure during this ER visit?: No
Condition: Good
Discharge Problem:
Asthma exacerbation, Acute asthmatic bronchitis
Instructions: Asthma in adults, Fever, Adult (DC)
Prescriptions:
New
prednisone 10 mg Tablet
See Rx Instructions .ROUTE .COMPLEX Qty: 30 0RF
Rx Instructions:
Take By Mouth:
40 mg daily x3 days, 30 mg daily x3 days,
20 mg daily x3 days, 10 mg daily x3 days.
doxycycline monohydrate 100 mg capsule
100 mg PO BID Qty: 14 1RF
No Action
albuterol sulfate [Proventil HFA] 90 MCG/PUFF HFA aerosol inhaler
2 puff inhalation R Q4HPRN PRN (Reason: shortness of breath)
ipratropium-albuterol 0.5 mg-3 mg(2.5 mg base)/3 mL Solution For Nebulization
3 ml inhalation QIDPRN PRN (Reason: shortness of breath or wheezing) Qty: 180 0RF
doxycycline hyclate 100 mg Capsule
100 mg PO Q12 5 Days Qty: 10 0RF
prednisone 10 mg Tablet
See Rx Instructions .ROUTE .COMPLEX Qty: 10 0RF
Rx Instructions:
Take By Mouth:
40 mg daily x1 day, 30 mg daily x1 day,
20 mg daily x1 days, 10 mg daily x1 day
Referrals:
[facility] [[facility]] - Call in 1-3 days for appt
NONE,* [Family Provider] - None
Stand Alone Forms: Return to Work
Interventions
Interventions:
*Risk Screen - Suicide Last Done: 07/23/24 22:58
*General Assessment Last Done: 07/23/24 22:58
*Neglect/Abuse Screening Last Done: 07/23/24 22:58
*ED COVID-19 Vaccine History Last Done: 07/23/24 22:58
*Nursing Disposition Last Done: 07/24/24 04:33
ED- Pulmonary Assessment Last Done: 07/24/24 02:30
Discharge Date and Time
Discharge Date/Time: 07/24/24 04:35
Print Language: INDONESIAN
[2024-07-24] MEDS: DUONEB 3 ML INH (03:10)
[2024-07-24] MEDS: DELTASONE 50 MG PO (03:10)
[2024-07-24 03:52] LABS: Procalcitonin 0.62 ng/ml (0.0-0.25)
[2024-07-24] MEDS: VIBRAMYCIN 100 MG PO (04:05)
[2024-07-24 04:32] VITALS: BP 129/71
== END 2024-07-24 04:35 | disposition home or self-care (01) ==
LOC: EMR 22:56
PROVIDERS: EMERGENCY PHYSICIAN Emergency Medicine
DX: J45.21 Mild intermittent asthma with (acute) exacerbation (principal); Z87.891 Personal history of nicotine dependence; Z11.52 Encounter for screening for COVID-19
CPT/HCPCS: 99284; 94640; 71046; 80053; 84145; 85025; 87070; 87502; 87811; 87880